=== PATIENT | female | born 1960 | race Caucasian/White ===

== ENCOUNTER 2016-07-11 17:22 | Emergency (ER) | payer BC, MEDICAID ==
[~2016-07-11] VITALS: Ht 160 cm; Wt 69.4 kg
[~2016-07-11 17:22] MED LIST: ALBU8HFA4 INH; NATURE THROID PO
--- NOTE | 2016-07-11 17:50 | NUR ---
CHAPERONED EXAMINING THE PT.
[2016-07-11 17:58] LABS: *BILIRUBIN,URIN NEGATIVE (NEGATIVE); *BLOOD, URINE 1+ (NEGATIVE); *CLARITY,URINE CLEAR (CLEAR); *COLOR,URINE YELLOW (YELLOW); *KETONES,URINE NEGATIVE (NEGATIVE); *PROTEIN,URINE NEGATIVE (NEGATIVE); *UROBILINOGEN,URINE 0.2 E.U./dl (NORMAL); NITRITE, URINE NEGATIVE (NEGATIVE); UGLUCOSE NEGATIVE (NEGATIVE)
[2016-07-11 18:06] LABS: LEUKOCYTE ESTERASE ,URINE TRACE (NEGATIVE)
[2016-07-11 18:07] LABS: SQUAMOUS EPITHELIAL CELL,UR FEW /HPF (NONE SEEN)
[2016-07-11 18:08] LABS: MUCUS,URINE MANY /LPF (0-FEW)
== END 2016-07-11 18:00 | disposition home or self-care (01) ==
LOC: ER 17:22
DX: N89.8 Other specified noninflammatory disorders of vagina (principal); I10 Essential (primary) hypertension; J45.909 Unspecified asthma, uncomplicated
CPT/HCPCS: 81001; 99283; A4663

== ENCOUNTER 2017-04-09 11:12 | Emergency (ER) | payer BC, MEDICAID, OTHER ==
[~2017-04-09] VITALS: Ht 160 cm; Wt 67.1 kg
[2017-04-09] MEDS ORDERED: SULF500T8 PO (11:26)
[2017-04-09] MEDS ORDERED: VALS40TA4 PO (11:26)
[2017-04-09] MEDS ORDERED: predniSONE 10 MG TABLET PO ONE (11:30)
[2017-04-09] MEDS ORDERED: ALBUTEROL SULFATE 2.5 MG/3 ML NEBU NEB ONE (11:30)
[2017-04-09] MEDS ORDERED: IPRATROPIUM BROMIDE 0.5 MG/2.5 ML NEBU NEB ONE (11:30)
[2017-04-09] MEDS ORDERED: predniSONE 20 MG TABLET ONE (11:51)
[2017-04-09] MEDS ORDERED: ALBUTEROL SULFATE 2.5 MG/3 ML NEBU ONE (11:55)
[2017-04-09] MEDS ORDERED: IPRATROPIUM BROMIDE 0.5 MG/2.5 ML NEBU ONE (11:55)
--- NOTE | 2017-04-09 12:26 | NUR ---
Patient discharged to home in stable conditon. Written and verbal after care instructions given. Patient verbalizes understanding of instructions.pt walks in steady gait, says feels better, lungs clear.
[2017-04-09 12:27] VITALS: BP 141/88
== END 2017-04-09 12:27 | disposition home or self-care (01) ==
LOC: ER 11:12
DX: J45.901 Unspecified asthma with (acute) exacerbation (principal); I10 Essential (primary) hypertension; M19.90 Unspecified osteoarthritis, unspecified site; R09.82 Postnasal drip
CPT/HCPCS: 71010; 93005; A4663; J3590; J7512

== ENCOUNTER 2017-04-14 11:05 | Emergency (ER) | payer OTHER ==
[~2017-04-14] VITALS: Ht 160 cm; Wt 68.0 kg
[~2017-04-14 11:05] MED LIST changes: +SULF500T8 PO; +VALS40TA4 PO
--- NOTE | 2017-04-14 11:41 | NUR ---
INITIALLY PT REFUSED EKG, AWARE. PT WAS THEN EVALUATED PER DR PANTOJA, PT THEN D/C'D HOME, ACI/RX X3 GIVEN. PT AMBULATED W/O DIFF/TOOK ALL BELONGINGS.
[2017-04-14 11:42] VITALS: BP 158/75
== END 2017-04-14 11:44 | disposition home or self-care (01) ==
LOC: ER 11:05
DX: J45.901 Unspecified asthma with (acute) exacerbation (principal); I10 Essential (primary) hypertension; M19.90 Unspecified osteoarthritis, unspecified site
CPT/HCPCS: 99283; A4663

== ENCOUNTER 2019-01-23 17:30 | Inpatient (IN) | payer BC, OTHER ==
[~2019-01-23] VITALS: Ht 157.5 cm; Wt 64.9 kg
[2019-01-23] MEDS ORDERED: IV NORMAL SALINE 1000 ML BAG IV ONE (18:15)
[2019-01-23] MEDS ORDERED: SWABABLE VALVE TRANSFER SET EA MC ONE (18:17)
[2019-01-23] MEDS ORDERED: IOHEXOL 350 100 ML INFUS..BTL ONE ×2 (18:17→18:21)
[2019-01-23] MEDS ORDERED: IV NORMAL SALINE 250 ML IV ONE (18:17)
[2019-01-23 18:40] LABS: BASOPHILS # (AUTO) 0.1 K/uL (0.0-8.0); BASOPHILS % (AUTO) 1.1 % (0.0-2.0); EOSINOPHILS # (AUTO) 0.3 K/uL (0.0-0.7); EOSINOPHILS % (AUTO) 3.5 % (0.0-7.0); HEMOGLOBIN 13.4 g/dL (10.9-14.3); LYMPHOCYTES # (AUTO) 2.5 K/uL (20.0-40.0); LYMPHOCYTES % (AUTO) 32.7 % (20.5-51.5); MEAN CORPUSCULAR HEMOGLOBIN 27.6 uug (24.7-32.8); MEAN CORPUSCULAR HGB CONC 33 g/dL (32.3-35.6); MEAN CORPUSCULAR VOLUME 82.4 fL (75.5-95.3); MONOCYTES # (AUTO) 0.6 K/uL (2.0-10.0); MONOCYTES % (AUTO) 7.2 % (0.0-11.0); NEUTROPHILS # (AUTO) 4.3 K/uL (1.8-8.9); NEUTROPHILS % (AUTO) 55.5 % (38.5-71.5); PLATELET COUNT (AUTO) 150 K/uL (179-408); RED BLOOD CELL COUNT(AUTO) 4.86 MIL/uL (3.63-4.92); WHITE BLOOD COUNT (AUTO) 7.7 K/uL (3.8-11.8)
[2019-01-23 18:42] LABS: CREATININE 0.8 mg/dL (0.6-1.3); POTASSIUM 3.3 mmol/L (3.5-5.1)
[2019-01-23 18:48] LABS: BILIRUBIN,DIRECT 0.1 mg/dL (0.0-0.2); BILIRUBIN,TOTAL 0.3 mg/dL (0.2-1.0); TOTAL PROTEIN, SERUM 7.1 g/dL (6.4-8.2)
[2019-01-23] MEDS ORDERED: ASPIRIN 81 MG TAB.CHEW PO ONE (19:30)
[2019-01-23] MEDS ORDERED: ASPIRIN 81 MG TAB.CHEW ONE (19:39)
[2019-01-23] MEDS ORDERED: LORAZEPAM 2 MG/1 ML VIAL IV ONE (19:45)
[2019-01-23] MEDS ORDERED: LORAZEPAM 2 MG/1 ML VIAL ONE (20:03)
[2019-01-23] MEDS ORDERED: ACETAMINOPHEN 325 MG TABLET PO PRN (21:30)
[2019-01-23 22:00] LABS: THYROID STIMULATING HORMONE 1.399 mIU/mL (0.358-3.740)
[2019-01-23] MEDS ORDERED: hydrALAZINE HCL 20 MG/1 ML VIAL IV PRN (22:15)
[2019-01-23] MEDS ORDERED: TEMAZEPAM 15 MG CAPSULE PO PRN (22:15)
[2019-01-23 22:27] VITALS: BP 146/78
[2019-01-23] MEDS ORDERED: POTASSIUM CHLORIDE 20 MEQ TAB.PRT.SR PO ONE (22:45)
[2019-01-23] MEDS: ENOXAPARIN SODIUM 40 MG/0.4 ML DISP.SYRIN SQ SCH (23:28)
[2019-01-24 00:30] VITALS: BP 170/68
[2019-01-24] MEDS: BLOOD SUGAR DIAGNOSTIC 1 EACH STRIP VI SCH ×5 (00:41→23:54)
[2019-01-24 06:03] VITALS: BP 145/75
[2019-01-24 07:08] LABS: EOSINOPHILS # (AUTO) 0.2 K/uL (0.0-0.7); EOSINOPHILS % (AUTO) 3.9 % (0.0-7.0); HEMATOCRIT 37.7 % (31.2-41.9); HEMOGLOBIN 12.8 g/dL (10.9-14.3); LYMPHOCYTES % (AUTO) 39.4 % (20.5-51.5); MEAN CORPUSCULAR HEMOGLOBIN 28.3 uug (24.7-32.8); MEAN CORPUSCULAR HGB CONC 34 g/dL (32.3-35.6); MEAN CORPUSCULAR VOLUME 83.7 fL (75.5-95.3); MONOCYTES # (AUTO) 0.3 K/uL (2.0-10.0); MONOCYTES % (AUTO) 6.9 % (0.0-11.0); NEUTROPHILS # (AUTO) 2.4 K/uL (1.8-8.9); NEUTROPHILS % (AUTO) 48.8 % (38.5-71.5); RED BLOOD CELL COUNT(AUTO) 4.51 MIL/uL (3.63-4.92)
[2019-01-24 07:17] LABS: CREATININE 0.8 mg/dL (0.6-1.3); POTASSIUM 3.6 mmol/L (3.5-5.1)
[2019-01-24 07:19] LABS: PLATELET COUNT (AUTO) 220 K/uL (179-408)
[2019-01-24] MEDS ORDERED: BLOOD SUGAR DIAGNOSTIC 1 EACH STRIP VI SCH (07:30)
[2019-01-24] MEDS: VALSARTAN 40 MG TABLET PO SCH (09:13)
[2019-01-24] MEDS: ASPIRIN EC 81 MG TABLET.DR PO SCH (09:13)
[2019-01-24 11:53] VITALS: BP 142/72
[2019-01-24 16:02] VITALS: BP 128/71
[2019-01-24 20:26] VITALS: BP 171/80
[2019-01-24] MEDS ORDERED: LORAZEPAM 2 MG/1 ML VIAL IV PRN (20:30)
[2019-01-24] MEDS: ENOXAPARIN SODIUM 40 MG/0.4 ML DISP.SYRIN SQ SCH (20:54)
[2019-01-24] MEDS ORDERED: ATORVASTATIN 10 MG TABLET PO SCH (21:00)
[2019-01-25 04:00] VITALS: BP 143/70
[2019-01-25] MEDS: BLOOD SUGAR DIAGNOSTIC 1 EACH STRIP VI SCH ×2 (06:00→11:11)
[2019-01-25] MEDS: ASPIRIN EC 81 MG TABLET.DR PO SCH (08:28)
[2019-01-25] MEDS: VALSARTAN 40 MG TABLET PO SCH (08:28)
[2019-01-25 11:09] VITALS: BP 145/71
[2019-01-25] MEDS ORDERED: ATOR10TA PO (11:45)
[2019-01-25] MEDS ORDERED: ASPI-605 PO (11:45)
[2019-01-25] MEDS ORDERED: CLON0.1T PO (11:45)
[2019-01-25] MEDS ORDERED: LISI10TA5 PO (11:45)
[2019-01-25 15:29] VITALS: BP 159/69
== END 2019-01-25 17:40 | disposition home or self-care (01) | DRG 69 ==
LOC: ER 17:30 → TELE3 21:30
PROVIDERS: ADMIT Nurse Practitioner Acute Care; ATTEND Nurse Practitioner Acute Care
DX: G45.9 Transient cerebral ischemic attack, unspecified (principal); E87.6 Hypokalemia; E78.5 Hyperlipidemia, unspecified; D69.6 Thrombocytopenia, unspecified; I10 Essential (primary) hypertension; R40.2252 Coma scale, best verbal response, oriented, at arrival to emergency department; R40.2362 Coma scale, best motor response, obeys commands, at arrival to emergency department; R40.2142 Coma scale, eyes open, spontaneous, at arrival to emergency department; R29.700 NIHSS score 0; R47.1 Dysarthria and anarthria
CPT/HCPCS: 36415; 70030-TC; 70450; 71045; 84443; 85025; 85651; 85730; 86850; 86900; 86901; 93005; 93307; 93880; A4663; G0378; J0360; J1650; J2060; J7030; J7050; Q9967

== ENCOUNTER 2019-06-10 16:31 | Inpatient (IN) | payer BC ==
[~2019-06-10] VITALS: Ht 160 cm; Wt 66.2 kg
[~2019-06-10 16:31] MED LIST changes: +ASPI-605 PO; +ATOR10TA PO; +CLON0.1T PO; +LISI10TA5 PO; -NATURE THROID PO; -SULF500T8 PO; -VALS40TA4 PO
[2019-06-10] MEDS ORDERED: DOXY100C2 PO (16:37)
[2019-06-10] MEDS: IPRATROPIUM BROMIDE 0.5 MG/2.5 ML NEBU NEB ONE ×2 (16:55→17:52)
[2019-06-10] MEDS: ALBUTEROL SULFATE 2.5 MG/3 ML NEBU NEB ONE ×2 (16:55→17:52)
[2019-06-10] MEDS ORDERED: IPRATROPIUM BROMIDE 0.5 MG/2.5 ML NEBU ONE (16:57)
[2019-06-10] MEDS ORDERED: ALBUTEROL SULFATE 2.5 MG/3 ML NEBU ONE ×3 (16:57→22:45)
[2019-06-10] MEDS ORDERED: MAGNESIUM SULFATE/D5W 100 ML IV SCH (17:00)
[2019-06-10] MEDS ORDERED: ONDANSETRON 4 MG/2 ML VIAL ONE (17:12)
[2019-06-10] MEDS ORDERED: MAGNESIUM SULFATE/D5W 100 ML ONE (17:12)
[2019-06-10] MEDS ORDERED: ONDANSETRON 4 MG/2 ML VIAL IV ONE (17:15)
--- NOTE | 2019-06-10 17:18 | NUR ---
PT IS IN ROOM #2B. DR HERNANDEZ EVALUATED THE PT.
[2019-06-10] MEDS ORDERED: IV NORMAL SALINE 1000 ML BAG IV ONE (19:00)
--- NOTE | 2019-06-10 19:09 | NUR ---
REPORT WAS GIVEN TO EQUITY SALES ASSISTANTRUBBER BALL FINISHER.
[2019-06-10 19:31] LABS: BASOPHILS % (AUTO) 0.5 % (0.0-2.0); EOSINOPHILS % (AUTO) 0.1 % (0.0-7.0); HEMATOCRIT 40.9 % (31.2-41.9); HEMOGLOBIN 13.8 g/dL (10.9-14.3); LYMPHOCYTES # (AUTO) 0.8 K/uL (20.0-40.0); LYMPHOCYTES % (AUTO) 8.8 % (20.5-51.5); MEAN CORPUSCULAR HEMOGLOBIN 28.5 uug (24.7-32.8); MEAN CORPUSCULAR HGB CONC 34 g/dL (32.3-35.6); MEAN CORPUSCULAR VOLUME 84.4 fL (75.5-95.3); MONOCYTES # (AUTO) 0.1 K/uL (2.0-10.0); MONOCYTES % (AUTO) 1.4 % (0.0-11.0); NEUTROPHILS # (AUTO) 7.7 K/uL (1.8-8.9); NEUTROPHILS % (AUTO) 89.2 % (38.5-71.5); PLATELET COUNT (AUTO) 257 K/uL (179-408); RED BLOOD CELL COUNT(AUTO) 4.84 MIL/uL (3.63-4.92); WHITE BLOOD COUNT (AUTO) 8.6 K/uL (3.8-11.8)
[2019-06-10 19:36] LABS: POTASSIUM 3.8 mmol/L (3.5-5.1)
[2019-06-10 19:42] LABS: BILIRUBIN,DIRECT 0.1 mg/dL (0.0-0.2); BILIRUBIN,TOTAL 0.5 mg/dL (0.2-1.0)
--- NOTE | 2019-06-10 20:10 | NUR ---
Respiratory at bedside.
[2019-06-10] MEDS ORDERED: ALBUTEROL SULFATE 2.5 MG/3 ML NEBU NEB ONE ×2 (20:15→22:45)
--- NOTE | 2019-06-10 20:40 | NUR ---
Spoke with Jos[facility], patient to be transferred to [facility], Accepting MD is Dr. Miarnda.
--- NOTE | 2019-06-10 21:20 | NUR ---
Called [facility] to page Dominick Montgomery DNP.
--- NOTE | 2019-06-10 21:33 | NUR ---
Waiting irrigation pump installer back from Lily.
--- NOTE | 2019-06-10 21:45 | NUR ---
Received call back from Lily Cannon Pt to be transferred to [facility], Accepting MD is Dr. Malone, waiting on room # and phone to report to. Faxed clinicals and face sheet to
--- NOTE | 2019-06-10 23:39 | NUR ---
Received call back from Zoya, stated that according to Dr. Malone that pt can be admitted to [facility] over night.
--- NOTE | 2019-06-10 23:40 | NUR ---
Called [facility] to page Dominick Montgomery DNP.
--- NOTE | 2019-06-11 00:02 | NUR ---
Called [facility] to page Dr. Merritt.
--- NOTE | 2019-06-11 00:06 | NUR ---
Dr. Trotter on panel call with Dr. Merritt. Patient accepted for admission to [facility], diagnosis: status asthmaticus.
--- NOTE | 2019-06-11 00:07 | NUR ---
Report given to Nicole BARRETO Tele.
[2019-06-11 00:10] VITALS: BP 153/71
[2019-06-11] MEDS ORDERED: HYDROCODONE/APAP 5-325MG TABLET PO PRN (00:45)
[2019-06-11] MEDS ORDERED: Z GUARD REMEDY PASTE 57 GM TUBE TOP PRN (00:45)
[2019-06-11] MEDS ORDERED: ZOLPIDEM 5 MG TABLET PO PRN (00:45)
--- NOTE | 2019-06-11 00:45 | NUR ---
New Admit Patient received into care, awake/alert and oriented x4. Patient has complaint of 5/10 pain in chest area r/t coughing and breathing treatments she has received. Complete PMH and H&P completed. Patients VS are WNL and she is stable. Telemonitor applied and patient is NSR 70's. Safety and fall precaution measures are in place. Call light and personal items are within reach. Will continue to monitor and assess.
[2019-06-11] MEDS: methylPREDNISolone SOD SUCC 125 MG/2 ML VIAL IV SCH ×4 (02:02→21:04)
[2019-06-11] MEDS: ALBUTEROL SULFATE 2.5 MG/3 ML NEBU NEB SCH ×6 (02:51→23:07)
[2019-06-11] MEDS: IPRATROPIUM BROMIDE 0.5 MG/2.5 ML NEBU NEB SCH ×6 (02:51→23:07)
[2019-06-11 04:00] VITALS: BP 129/62
--- NOTE | 2019-06-11 06:00 | NUR ---
PATIENT SLEPT THROUGHOUT NIGHT AFTER ADMISSION TO UNIT WITH NO COMPLAINTS OF PAIN OR DISCOMFORT AND NO SIGNS/SYMPTOMS OF ACUTE DISTRESS OR DISCOMFORT NOTED/OBSERVED BY NURSE. ALL PRESCRIBED MEDICATIONS PROVIDED ORDERED AND TOLERATED WELL BY PATIENT WITH NO ADVERSE SIDE EFFECTS VERBALIZED BY PATIENT OR NOTED/OBSERVED BY NURSE. ALL PATIENT NEEDS MET PROMPTLY AND PATIENT IS WARM, DRY, AND COMFORTABLE. CALL LIGHT AND PERSONAL ITEMS REMAIN WITHIN REACH. SAFETY AND FALL PRECAUTION MEASURES REMAIN IN PLACE.
[2019-06-11] MEDS: PANTOPRAZOLE SODIUM 40 MG TABLET.DR PO SCH (06:06)
--- NOTE | 2019-06-11 07:15 | NUR ---
Received patient on Bed, awake and verbally responsive. No signs of distress noted. No SOB. No complain of Pain or discomfort. Denies chest pain. Kept comfortable. Will continue to monitor.
[2019-06-11 11:32] VITALS: BP 127/64
[2019-06-11] MEDS: levoFLOXacin 750MG/D5W 750 MG in PREMIXED 1 EACH IV SCH (15:34)
[2019-06-11 15:51] VITALS: BP 123/62
--- NOTE | 2019-06-11 18:17 | NUR ---
Patient in bed, awake and verbally responsive. No signs of distress noted. No SOB. On Oxygen at 3LPM, saturating 96%. No complain of Pain or discomfort. All needs attended and met. Kept comfortable. Kept the call light within easy reach. Will endorse to oncoming Nurse.
--- NOTE | 2019-06-11 19:30 | NUR ---
PATIENT REFUSED DVT PUMPS.
[2019-06-11 20:49] VITALS: BP 117/54
[2019-06-12] MEDS: ACETAMINOPHEN 325 MG TABLET PO PRN ×3 (01:35→19:58)
[2019-06-12] MEDS: ALBUTEROL SULFATE 2.5 MG/3 ML NEBU NEB SCH ×4 (04:13→11:00)
[2019-06-12] MEDS: IPRATROPIUM BROMIDE 0.5 MG/2.5 ML NEBU NEB SCH ×6 (04:13→22:10)
--- NOTE | 2019-06-12 04:45 | NUR ---
PATIENT SPO2 REMAINS ABOVE 92% ON 2LPM. HHN TREATMENTS ADMINISTERED. PATIENT STATES SHE FEELS HEART PALPITATIONS AFTER TREATMENTS THAT ARE PREVENTING HER FROM RESTING. HEART RATE REMAINED WITHIN NORMAL LIMITS PRE AND POST TREATMENTS. I RECOMMEND CHANGING MEDS TO XOPENEX FOR FUTURE TX. MARY LOU DAHL. WILL CONTINUE TO MONITOR.
[2019-06-12 05:27] VITALS: BP 132/81
--- NOTE | 2019-06-12 05:30 | NUR ---
PATIENT SLEPT INTERMITTENTLY. V/S STABLE AND NO SIGNS OF ACUTE DISTRESS. C/O OF PAIN THROUGHOUT SHIFT. NORCO5 X1 AND TYLENOL X1 ADMINISTERED TO ADDRESS. TOLERATED WELL. URINE SAMPLE COLLECTED AND SENT TO LAB. SAFETY AND COMFORT MEASURES PROVIDED AT ALL TIMES. BED IN LOWEST POSITION, SIDE RAILS UP X2, AND BED ALARM ON. WILL CONTINUE TO MONITOR AND ENDORSE CARE TO MORNING NURSE.
[2019-06-12 05:34] LABS: *BILIRUBIN,URIN NEGATIVE (NEGATIVE); *CLARITY,URINE CLEAR (CLEAR); *COLOR,URINE YELLOW (YELLOW); *KETONES,URINE NEGATIVE (NEGATIVE); *UROBILINOGEN,URINE 0.2 E.U./dl (NORMAL); LEUKOCYTE ESTERASE ,URINE NEGATIVE (NEGATIVE); NITRITE, URINE NEGATIVE (NEGATIVE); UGLUCOSE NEGATIVE (NEGATIVE)
[2019-06-12] MEDS: methylPREDNISolone SOD SUCC 125 MG/2 ML VIAL IV SCH ×3 (06:00→21:00)
--- NOTE | 2019-06-12 06:04 | NUR ---
patient refused steroid medication this morning despite education. will continue to monitor and endorse care.
--- NOTE | 2019-06-12 06:26 | NUR ---
PATIENT REFUSED LAB THIS MORNING TWICE. WILL ENDORSE TO MORNING NURSE TO F/U WITH PATIENT LATER IN THE MORNING.
[2019-06-12] MEDS: PANTOPRAZOLE SODIUM 40 MG TABLET.DR PO SCH (06:27)
[2019-06-12 06:36] LABS: *BLOOD, URINE NEGATIVE (NEGATIVE)
[2019-06-12] MEDS: ONDANSETRON 4 MG/2 ML VIAL IV PRN ×2 (08:27→19:58)
[2019-06-12 11:09] VITALS: BP 132/66
[2019-06-12] MEDS: LEVALBUTEROL HCL NEB 0.63 MG/3 ML NEBU NEB SCH ×2 (13:30→19:20)
[2019-06-12] MEDS: levoFLOXacin 750MG/D5W 750 MG in PREMIXED 1 EACH IV SCH (14:31)
[2019-06-12 15:12] LABS: BASOPHILS % (AUTO) 0.1 % (0.0-2.0); HEMATOCRIT 37.9 % (31.2-41.9); HEMOGLOBIN 12.6 g/dL (10.9-14.3); LYMPHOCYTES # (AUTO) 0.7 K/uL (20.0-40.0); LYMPHOCYTES % (AUTO) 5.9 % (20.5-51.5); MEAN CORPUSCULAR HEMOGLOBIN 27.9 uug (24.7-32.8); MEAN CORPUSCULAR HGB CONC 33 g/dL (32.3-35.6); MEAN CORPUSCULAR VOLUME 84.2 fL (75.5-95.3); MONOCYTES # (AUTO) 0.4 K/uL (2.0-10.0); MONOCYTES % (AUTO) 3.3 % (0.0-11.0); NEUTROPHILS # (AUTO) 11.4 K/uL (1.8-8.9); NEUTROPHILS % (AUTO) 90.7 % (38.5-71.5); PLATELET COUNT (AUTO) 270 K/uL (179-408); WHITE BLOOD COUNT (AUTO) 12.5 K/uL (3.8-11.8)
[2019-06-12 15:21] VITALS: BP 139/67
[2019-06-12 15:27] LABS: MAGNESIUM 2.3 mg/dL (1.8-2.4); PHOSPHOROUS 2.8 mg/dL (2.5-4.9)
[2019-06-12 15:31] LABS: THYROID STIMULATING HORMONE 0.307 mIU/mL (0.358-3.740)
[2019-06-12 19:46] VITALS: BP 137/74
[2019-06-12] MEDS: ATORVASTATIN 10 MG TABLET PO SCH (20:00)
--- NOTE | 2019-06-12 22:14 | NUR ---
patient c/o of not have a Bowl movement. offered patient Milk of Mg. patient refused despite education. will let me know if she changes her mind.
--- NOTE | 2019-06-12 22:15 | NUR ---
patient had c/o of nausea and headache. administered Tylenol and Zofran. resting calm and comfortably now. eating 100% of her dinner. v/s stable and WNL. will continue to monitor for s/s of headache and nausea.
[2019-06-13] MEDS: IPRATROPIUM BROMIDE 0.5 MG/2.5 ML NEBU NEB SCH ×7 (01:06→22:07)
[2019-06-13] MEDS: LEVALBUTEROL HCL NEB 0.63 MG/3 ML NEBU NEB SCH ×7 (01:06→22:07)
[2019-06-13] MEDS: ACETAMINOPHEN 325 MG TABLET PO PRN (02:32)
[2019-06-13] MEDS: ONDANSETRON 4 MG/2 ML VIAL IV PRN (04:27)
[2019-06-13] MEDS: MAGNESIUM HYDROXIDE 30 ML LIQUID UDC PO PRN (04:42)
[2019-06-13] MEDS: methylPREDNISolone SOD SUCC 125 MG/2 ML VIAL IV SCH ×3 (05:02→22:00)
[2019-06-13 05:20] VITALS: BP 140/65
[2019-06-13] MEDS: PANTOPRAZOLE SODIUM 40 MG TABLET.DR PO SCH (06:46)
--- NOTE | 2019-06-13 06:46 | NUR ---
patient refused protonix this morning despite education. will return to pyxis.
--- NOTE | 2019-06-13 07:30 | NUR ---
Sleeping, appears comfortable. RA, not in distress
--- NOTE | 2019-06-13 09:00 | NUR ---
Patient not feeling, with headache and nausea. Refused Zofran at this time. With shortness of breath and wheezing. Due HHN given with relief.
[2019-06-13] MEDS: ASPIRIN EC 81 MG TABLET.DR PO SCH (09:24)
[2019-06-13] MEDS: LISINOPRIL 10 MG TABLET PO SCH (09:25)
[2019-06-13] MEDS ORDERED: ONDANSETRON 4 MG/2 ML VIAL IV PRN (09:30)
[2019-06-13 11:59] VITALS: BP 153/69
[2019-06-13] MEDS ORDERED: ALBUTEROL SULFATE 1.25 MG/3 ML NEBU NEB SCH (13:30)
--- NOTE | 2019-06-13 14:00 | NUR ---
Dose of Solumedrol and Levaquin given in slow rate per patient's request.
[2019-06-13] MEDS: levoFLOXacin 750MG/D5W 750 MG in PREMIXED 1 EACH IV SCH (14:07)
[2019-06-13 15:31] VITALS: BP 130/65
--- NOTE | 2019-06-13 18:22 | NUR ---
Room air, not in distress
[2019-06-13 20:00] VITALS: BP 150/74
--- NOTE | 2019-06-13 20:00 | NUR ---
RECEIVED PATIENT AWAKE IN BED. A/O X4. DENIES PAIN OR DISCOMFORT. ON O2 1L NC SATING WELL. DENIES SOB. NO RESP. DISTRESS NOTED. VS WNL. HEPLOCK NOTED TO RIGHT HAND #20 GAUGE, WITH TKO. CALL LIGHT IN REACH. ALL NEEDS ATTENDED. WILL CONTINUE TO MONITOR AND ASSESS.
--- NOTE | 2019-06-13 20:26 | NUR ---
Pt is on 0.5LNC at this time and requested resp neb tx to be adm'd at approx 2200. No resp. distress noted at this time.
[2019-06-13] MEDS: ATORVASTATIN 10 MG TABLET PO SCH ×2 (20:45→21:39)
[2019-06-14] MEDS: IPRATROPIUM BROMIDE 0.5 MG/2.5 ML NEBU NEB SCH ×6 (03:30→19:48)
[2019-06-14 04:00] VITALS: BP 130/63
[2019-06-14] MEDS: LEVALBUTEROL HCL NEB 0.63 MG/3 ML NEBU NEB SCH ×3 (04:00→19:48)
[2019-06-14] MEDS: methylPREDNISolone SOD SUCC 125 MG/2 ML VIAL IV SCH ×3 (06:00→21:13)
--- NOTE | 2019-06-14 06:43 | NUR ---
PATIENT ASLEEP BUT EASILY AROUSABLE, NO SOB NO CHEST PAIN, CONT ON HHN TX FOR ASTHMA, PATIENT HAS NO COMPLAIN OF PAIN AT THIS TIME. PATIENT REFUSED 0400 HHN TX REFUSED TO BE AWAKEN FOR THE TX. RT WAS NOTIFIED.
[2019-06-14] MEDS: PANTOPRAZOLE SODIUM 40 MG TABLET.DR PO SCH (07:07)
[2019-06-14] MEDS ORDERED: ALBUTEROL SULFATE 1.25 MG/3 ML NEBU NEB ONE (07:35)
--- NOTE | 2019-06-14 08:00 | NUR ---
RECEIVED PT RESTING COMFORTABLY IN BED. NO SOB OR ACUTE DISTRESS NOTED. BED LOCKED AND IN LOW POSITION. WILL CONTINUE TO MONITOR FOR SAFETY AND COMFORT.
[2019-06-14] MEDS: ASPIRIN EC 81 MG TABLET.DR PO SCH (08:53)
[2019-06-14] MEDS: LISINOPRIL 10 MG TABLET PO SCH (08:53)
[2019-06-14 11:11] VITALS: BP 136/72
[2019-06-14] MEDS ORDERED: BUDESONIDE 0.5 MG/2 ML NEBU NEB SCH (12:30)
[2019-06-14] MEDS ORDERED: LEVALBUTEROL HCL NEB 0.63 MG/3 ML NEBU NEB PRN (12:30)
[2019-06-14] MEDS: GUAIFENESIN LA 600 MG TABLET.SA PO SCH ×2 (12:38→20:19)
[2019-06-14] MEDS ORDERED: LEVALBUTEROL HCL NEB 0.63 MG/3 ML NEBU NEB SCH ×2 (13:30)
[2019-06-14] MEDS ORDERED: ALBUTEROL SULFATE 1.25 MG/3 ML NEBU NEB SCH (13:30)
[2019-06-14 14:52] LABS: HEMATOCRIT 40.9 % (31.2-41.9); HEMOGLOBIN 13.4 g/dL (10.9-14.3); LYMPHOCYTES # (AUTO) 0.9 K/uL (20.0-40.0); LYMPHOCYTES % (AUTO) 8.9 % (20.5-51.5); MEAN CORPUSCULAR HGB CONC 33 g/dL (32.3-35.6); MONOCYTES # (AUTO) 0.6 K/uL (2.0-10.0); MONOCYTES % (AUTO) 5.9 % (0.0-11.0); NEUTROPHILS # (AUTO) 8.7 K/uL (1.8-8.9); NEUTROPHILS % (AUTO) 85.2 % (38.5-71.5); PLATELET COUNT (AUTO) 251 K/uL (179-408); RED BLOOD CELL COUNT(AUTO) 4.81 MIL/uL (3.63-4.92); WHITE BLOOD COUNT (AUTO) 10.2 K/uL (3.8-11.8)
[2019-06-14] MEDS: levoFLOXacin 750MG/D5W 750 MG in PREMIXED 1 EACH IV SCH (15:08)
[2019-06-14 15:12] LABS: CREATININE 0.9 mg/dL (0.6-1.3)
[2019-06-14 15:19] VITALS: BP 132/69
--- NOTE | 2019-06-14 18:00 | NUR ---
ABX GIVEN @ 50ML/HR. PER PT REQUEST. PHARMACY INFORMED. DR ANDINO AWARE. NO ACUTE DISTRESS OR SOB NOTED. PT ON RA COMFORTABLE PLEASANT AND COOPERATIVE. WILL GIVE REPORT ACCORDINGLY.
[2019-06-14 20:00] VITALS: BP 113/62
[2019-06-14] MEDS: ATORVASTATIN 10 MG TABLET PO SCH (20:19)
[2019-06-14] MEDS: ACETAMINOPHEN 325 MG TABLET PO PRN (21:59)
[2019-06-15] MEDS: IPRATROPIUM BROMIDE 0.5 MG/2.5 ML NEBU NEB SCH ×4 (00:45→20:20)
[2019-06-15] MEDS: LEVALBUTEROL HCL NEB 0.63 MG/3 ML NEBU NEB SCH ×4 (00:45→20:20)
[2019-06-15 04:00] VITALS: BP 123/58
[2019-06-15] MEDS: CALCIUM CARBONATE 500 MG TAB.CHEW PO PRN (05:28)
[2019-06-15] MEDS: methylPREDNISolone SOD SUCC 125 MG/2 ML VIAL IV SCH ×2 (05:28→20:24)
[2019-06-15] MEDS: ACETAMINOPHEN 325 MG TABLET PO PRN ×2 (05:42→20:55)
--- NOTE | 2019-06-15 06:18 | NUR ---
Patient slept intermittently. No SOB noted. IV site on R hand intact and patent. All needs attended. Will endorse accordingly
[2019-06-15] MEDS: PANTOPRAZOLE SODIUM 40 MG TABLET.DR PO SCH (06:39)
--- NOTE | 2019-06-15 07:29 | NUR ---
RECEIVED PATIENT ASLEEP IN BED. NO S/S OF ACUTE DISTRESS NOTED.NO C/O PAIN AT THIS TIME. SAFETY AND COMFORT PROVIDED . CALL LIGHT WITHIN REACH. WILL CONTINUE TO MONITOR .
[2019-06-15] MEDS: GUAIFENESIN LA 600 MG TABLET.SA PO SCH ×2 (10:07→20:25)
[2019-06-15] MEDS: LISINOPRIL 10 MG TABLET PO SCH (10:07)
[2019-06-15] MEDS: ASPIRIN EC 81 MG TABLET.DR PO SCH (10:08)
[2019-06-15] MEDS: MONTELUKAST SODIUM 10 MG TABLET PO SCH ×2 (10:09→18:23)
[2019-06-15 11:40] VITALS: BP 136/70
[2019-06-15] MEDS: levoFLOXacin 750MG/D5W 750 MG in PREMIXED 1 EACH IV SCH (15:09)
[2019-06-15 16:00] VITALS: BP 115/63
[2019-06-15] MEDS: IPRATROPIUM BROMIDE 0.5 MG/2.5 ML NEBU NEB PRN (17:41)
--- NOTE | 2019-06-15 18:42 | NUR ---
PATIENT ALERT AND AWAKE IN BED WITH HOB ELEVATED. NO S/S OF ACUTE DISTRESS NOTED. NO C/O PAIN AT THIS TIME. SAFETY AND COMFORT PROVIDED. CALL LIGHT WITHIN REACH. WILL CONTINUE TO MONITOR .
[2019-06-15] MEDS: ATORVASTATIN 10 MG TABLET PO SCH (20:25)
[2019-06-15] MEDS ORDERED: LEVALBUTEROL HCL 1.25 MG/0.5 ML NEB NEB SCH (21:00)
[2019-06-15] MEDS ORDERED: TEMAZEPAM 7.5 MG CAPSULE PO PRN (21:00)
[2019-06-15 21:11] VITALS: BP 143/61
[2019-06-15] MEDS: ALBUTEROL SULFATE 2.5 MG/ 0.5 ML NEBU NEB SCH (21:30)
[2019-06-16] MEDS: IPRATROPIUM BROMIDE 0.5 MG/2.5 ML NEBU NEB SCH ×5 (00:17→21:28)
[2019-06-16] MEDS: ALBUTEROL SULFATE 2.5 MG/ 0.5 ML NEBU NEB SCH ×7 (00:17→21:28)
[2019-06-16] MEDS: IPRATROPIUM BROMIDE 0.5 MG/2.5 ML NEBU NEB PRN (03:19)
[2019-06-16] MEDS: PANTOPRAZOLE SODIUM 40 MG TABLET.DR PO SCH (06:35)
--- NOTE | 2019-06-16 06:46 | NUR ---
Patient slept intermittently. No complaints of pain at this time. IV site on R hand intact and patent w/ saline flush. All needs attended. Will endorse accordingly
[2019-06-16 06:57] VITALS: BP 133/63
--- NOTE | 2019-06-16 08:00 | NUR ---
Received pt. resting in bed alert oriented x4. pt. states she has some pain from coughing and wants tylenol. Pt. denies SOB/ difficulty breathing. IV in R hand 20 gauge intact patent running TKO per request of pt. Safety measures in place. call light within reach. will continue to monitor pt.
[2019-06-16] MEDS: GUAIFENESIN LA 600 MG TABLET.SA PO SCH ×2 (08:56→20:23)
[2019-06-16] MEDS: ACETAMINOPHEN 325 MG TABLET PO PRN ×2 (08:56→20:24)
[2019-06-16] MEDS: LISINOPRIL 10 MG TABLET PO SCH (08:56)
[2019-06-16] MEDS: ASPIRIN EC 81 MG TABLET.DR PO SCH (08:56)
[2019-06-16] MEDS: methylPREDNISolone SOD SUCC 125 MG/2 ML VIAL IV SCH (08:57)
[2019-06-16] MEDS ORDERED: IV NS 1000 ML 1,000 ML IV PRN (10:30)
[2019-06-16 11:39] VITALS: BP 134/76
[2019-06-16] MEDS: levoFLOXacin 750MG/D5W 750 MG in PREMIXED 1 EACH IV SCH (13:58)
[2019-06-16] MEDS: methylPREDNISolone SOD SUCC 40 MG/ML VIAL IV SCH ×2 (14:54→21:13)
[2019-06-16 16:00] VITALS: BP 114/61
[2019-06-16] MEDS: MONTELUKAST SODIUM 10 MG TABLET PO SCH (17:16)
--- NOTE | 2019-06-16 19:20 | NUR ---
Received patient lying in bed. AAOx4. In no acute distress. Denies any pain or SOB on RA at this time. Patient stated she uses O2 at 2LPM via NC PRN. IV site on right hand intact and patent. IVF infusing. Needs assessed and attended to. Patient daughter at bedside. Safety measure initiated and call gunn within reached.
--- NOTE | 2019-06-16 19:36 | NUR ---
Day shift nurse Vikki informed SELENE Grijalva that patient is requesting to only run NS at 50cc/ml as she has very sensitive veins. SELENE Grijalva with order to decrease NS to 50cc/hr per patient request. Order noted and carried out.
[2019-06-16 20:00] VITALS: BP 115/74
[2019-06-16] MEDS: ATORVASTATIN 10 MG TABLET PO SCH (20:23)
[2019-06-17] MEDS: ALBUTEROL SULFATE 2.5 MG/ 0.5 ML NEBU NEB SCH ×7 (01:43→23:30)
[2019-06-17] MEDS: IPRATROPIUM BROMIDE 0.5 MG/2.5 ML NEBU NEB SCH ×7 (01:43→23:30)
[2019-06-17 04:00] VITALS: BP 134/70
[2019-06-17] MEDS: methylPREDNISolone SOD SUCC 40 MG/ML VIAL IV SCH (05:51)
[2019-06-17] MEDS: ACETAMINOPHEN 325 MG TABLET PO PRN ×2 (05:51→21:40)
[2019-06-17] MEDS: PANTOPRAZOLE SODIUM 40 MG TABLET.DR PO SCH (06:00)
--- NOTE | 2019-06-17 06:05 | NUR ---
AAOx4. In no acute distress. On O2 at 2LPM via NC. O2 sat at 98%. Breathing treatment provided by RT per order. IV site on right hand intact and patent. IVF infusing. Needs attended to and met. Safety measure maintained and call gunn within reached.
[2019-06-17 06:55] LABS: BASOPHILS % (AUTO) 0.1 % (0.0-2.0); LYMPHOCYTES # (AUTO) 0.7 K/uL (20.0-40.0); LYMPHOCYTES % (AUTO) 5.8 % (20.5-51.5); MEAN CORPUSCULAR HEMOGLOBIN 28.2 uug (24.7-32.8); MEAN CORPUSCULAR HGB CONC 33 g/dL (32.3-35.6); MEAN CORPUSCULAR VOLUME 84.7 fL (75.5-95.3); MONOCYTES # (AUTO) 0.4 K/uL (2.0-10.0); MONOCYTES % (AUTO) 3.6 % (0.0-11.0); NEUTROPHILS # (AUTO) 10.8 K/uL (1.8-8.9); NEUTROPHILS % (AUTO) 90.5 % (38.5-71.5); PLATELET COUNT (AUTO) 232 K/uL (179-408); RED BLOOD CELL COUNT(AUTO) 4.29 MIL/uL (3.63-4.92); WHITE BLOOD COUNT (AUTO) 11.9 K/uL (3.8-11.8)
[2019-06-17 06:57] LABS: CREATININE 0.9 mg/dL (0.6-1.3); MAGNESIUM 2.4 mg/dL (1.8-2.4); PHOSPHOROUS 3.5 mg/dL (2.5-4.9); POTASSIUM 4.1 mmol/L (3.5-5.1)
[2019-06-17 07:15] LABS: HEMOGLOBIN 12.1 g/dL (10.9-14.3)
[2019-06-17 07:16] LABS: HEMATOCRIT 36.4 % (31.2-41.9)
--- NOTE | 2019-06-17 08:00 | NUR ---
Received pt. resting in bed alert oriented x4. pt. states she has some pain from coughing and wants tylenol. Pt. denies SOB/ difficulty breathing. IV in R hand 20 gauge intact patent running prescribed fluids Safety measures in place. call light within reach. will continue to monitor pt.
[2019-06-17] MEDS: ASPIRIN EC 81 MG TABLET.DR PO SCH (09:29)
[2019-06-17] MEDS: GUAIFENESIN LA 600 MG TABLET.SA PO SCH ×2 (09:29→20:59)
[2019-06-17] MEDS: LISINOPRIL 10 MG TABLET PO SCH (09:34)
[2019-06-17] MEDS ORDERED: LORAZEPAM 0.5 MG TABLET PO PRN (10:30)
[2019-06-17 12:00] VITALS: BP 122/64
[2019-06-17] MEDS ORDERED: methylPREDNISolone SOD SUCC 40 MG/ML VIAL IV SCH (14:00)
[2019-06-17] MEDS: MAGNESIUM HYDROXIDE 30 ML LIQUID UDC PO PRN (14:13)
[2019-06-17] MEDS: methylPREDNISolone SOD SUCC 125 MG/2 ML VIAL IV SCH ×2 (14:14→21:01)
[2019-06-17] MEDS: levoFLOXacin 750MG/D5W 750 MG in PREMIXED 1 EACH IV SCH (14:37)
[2019-06-17 15:59] VITALS: BP 125/67
[2019-06-17] MEDS: MONTELUKAST SODIUM 10 MG TABLET PO SCH (17:40)
--- NOTE | 2019-06-17 18:50 | NUR ---
Pt. has not had BM throughout shift. Provided pt. with prune juice and milk of magnesia and encouraged pt. to ambulate to get bowels moving. Will endorse to night shift manager nurse. All needs met. Safety measures in place. Call light within reach.
--- NOTE | 2019-06-17 19:20 | NUR ---
Received patient sitting upright in bed. AAOx4. In no acute distress. Denies SOB, On O2 at 2LPM via NC in place. Compalined of back pain but stated tolerable at this time. Offered pain medication but declined. IV site on right hand intact and patent. IVF infusing. Needs assessed and attended to. Safety measure initiated and call gunn within reached.
[2019-06-17 20:20] VITALS: BP 126/64
[2019-06-17] MEDS: ATORVASTATIN 10 MG TABLET PO SCH (20:59)
--- NOTE | 2019-06-17 22:14 | NUR ---
Informed SELENE Grijalva, that patient was asking for more Ativan. Patient was given 0.25mg PO of Ativan at 2133 and stated it is not effective. SELENE Grijalva with order to give additional Ativan 0.25mg x1 time dose only. Order verified and will carry out.
[2019-06-17] MEDS ORDERED: LORAZEPAM 0.5 MG TABLET PO ONE (22:30)
[2019-06-18] MEDS: ALBUTEROL SULFATE 2.5 MG/ 0.5 ML NEBU NEB SCH ×6 (03:30→23:30)
[2019-06-18] MEDS: IPRATROPIUM BROMIDE 0.5 MG/2.5 ML NEBU NEB SCH ×6 (03:30→23:30)
[2019-06-18 04:00] VITALS: BP 141/78
[2019-06-18] MEDS: IPRATROPIUM BROMIDE 0.5 MG/2.5 ML NEBU NEB PRN (05:50)
[2019-06-18] MEDS: ALBUTEROL SULFATE 2.5 MG/ 0.5 ML NEBU NEB PRN (05:50)
[2019-06-18] MEDS: methylPREDNISolone SOD SUCC 125 MG/2 ML VIAL IV SCH ×3 (05:58→22:10)
[2019-06-18] MEDS: ACETAMINOPHEN 325 MG TABLET PO PRN (06:04)
[2019-06-18] MEDS: PANTOPRAZOLE SODIUM 40 MG TABLET.DR PO SCH (06:04)
--- NOTE | 2019-06-18 06:09 | NUR ---
AAOx4. Reported she slept better last night. In no acute distress. On O2 at 2LPM via NC. . Breathing treatment provided by RT per order. Tylenol 650mg PO given for complain of pain and effective. IV site on right hand intact and patent. IVF infusing. Needs attended to and met. Safety measure maintained and call gunn within reached.
[2019-06-18] MEDS: IV NS 1000 ML 1,000 ML IV PRN (07:39)
--- NOTE | 2019-06-18 08:00 | NUR ---
Received pt. resting in bed alert oriented x4. Pt. denies SOB/ difficulty breathing. IV in R hand 20 gauge intact patent running prescribed fluids Safety measures in place. call light within reach. will continue to monitor pt.
[2019-06-18] MEDS: GUAIFENESIN LA 600 MG TABLET.SA PO SCH ×3 (08:43→22:10)
[2019-06-18] MEDS: ASPIRIN EC 81 MG TABLET.DR PO SCH (08:43)
[2019-06-18] MEDS: LISINOPRIL 10 MG TABLET PO SCH (08:43)
[2019-06-18 11:45] VITALS: BP 125/67
[2019-06-18] MEDS: LORAZEPAM 0.5 MG TABLET PO PRN ×2 (14:24→19:07)
[2019-06-18 16:00] VITALS: BP 123/63
[2019-06-18] MEDS: MONTELUKAST SODIUM 10 MG TABLET PO SCH (18:21)
[2019-06-18 20:24] VITALS: BP 111/57
--- NOTE | 2019-06-18 20:31 | NUR ---
patient lying in bed and reading book. v/s stable, no signs of acute distress. will continue to monitor.
[2019-06-18] MEDS: ATORVASTATIN 10 MG TABLET PO SCH (21:18)
--- NOTE | 2019-06-18 21:19 | NUR ---
patient dropped her mucinex on the floor while attempting to swallow. will pull from pyxis again to administer.
[2019-06-19] MEDS: IV NS 1000 ML 1,000 ML IV PRN ×2 (00:06→19:09)
[2019-06-19] MEDS: LORAZEPAM 0.5 MG TABLET PO PRN ×2 (03:38→21:57)
[2019-06-19] MEDS: IPRATROPIUM BROMIDE 0.5 MG/2.5 ML NEBU NEB SCH ×6 (04:34→23:30)
[2019-06-19] MEDS: ALBUTEROL SULFATE 2.5 MG/ 0.5 ML NEBU NEB SCH ×6 (04:34→23:30)
--- NOTE | 2019-06-19 04:57 | NUR ---
patient resting. v/s stable. no distress noted. all medication administered. c/o of anxiety once. ativan administered. anxiety resolved. c/o of nausea once. no vomiting. nursing interventions provided. nausea resolved. will continue plan of care and endorse once.
[2019-06-19 06:09] VITALS: BP_SYST 114; BP_SYST 130; BP_DIAS 48; BP_DIAS 72
[2019-06-19] MEDS: methylPREDNISolone SOD SUCC 125 MG/2 ML VIAL IV SCH ×3 (06:21→21:39)
[2019-06-19] MEDS: PANTOPRAZOLE SODIUM 40 MG TABLET.DR PO SCH (06:21)
[2019-06-19] MEDS: GUAIFENESIN LA 600 MG TABLET.SA PO SCH ×2 (08:51→21:39)
[2019-06-19] MEDS: LISINOPRIL 10 MG TABLET PO SCH (08:51)
[2019-06-19] MEDS: ASPIRIN EC 81 MG TABLET.DR PO SCH (08:51)
[2019-06-19 11:30] VITALS: BP 148/77
[2019-06-19 16:00] VITALS: BP 138/72
[2019-06-19] MEDS: MONTELUKAST SODIUM 10 MG TABLET PO SCH (17:57)
--- NOTE | 2019-06-19 18:39 | NUR ---
PATIENT IN BED AWAKE AND ALERT , NO S/S OF ACUTE DISTRESS NOTED, NO C/O PAIN NOTED AT THIS TIME, PATIEN HAD SHOWER TODAY. CONTINUE TO MONITOR, CALL LIGHT WITHIN REACH. SAFETY AND COMFORT PROVIDED.
[2019-06-19 19:49] VITALS: BP 127/62
--- NOTE | 2019-06-19 21:04 | NUR ---
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 appears rested and comfortable with no s/s of acute distress. v/s stable at this time. bed in lowest position, bed alarm on, side rails up x2. will continue plan of care.
[2019-06-19] MEDS: ATORVASTATIN 10 MG TABLET PO SCH (21:39)
[2019-06-19] MEDS: CALCIUM CARBONATE 500 MG TAB.CHEW PO PRN (21:57)
--- NOTE | 2019-06-20 01:20 | NUR ---
c/o of nausea. talat refused. provided nursing interventions. patient resting in bed. will continue to monitor.
[2019-06-20] MEDS: IPRATROPIUM BROMIDE 0.5 MG/2.5 ML NEBU NEB SCH ×6 (01:21→22:30)
[2019-06-20] MEDS: ALBUTEROL SULFATE 2.5 MG/ 0.5 ML NEBU NEB SCH ×6 (01:21→22:30)
--- NOTE | 2019-06-20 04:31 | NUR ---
patient resting comfortably. v/s stable. denies SOB. will continue to monitor and endorse to morning nurse.
[2019-06-20 05:00] VITALS: BP 140/73
--- NOTE | 2019-06-20 05:23 | NUR ---
wheelabrator operator unable to receive blood from patient in first try. patient refused and asked for another wheelabrator operator. will get lab draws from her later in the morning
[2019-06-20] MEDS: PANTOPRAZOLE SODIUM 40 MG TABLET.DR PO SCH (06:09)
[2019-06-20] MEDS: methylPREDNISolone SOD SUCC 125 MG/2 ML VIAL IV SCH ×3 (06:09→21:51)
--- NOTE | 2019-06-20 07:27 | NUR ---
PATIENT IN BED RESTING WITH NO C/O PAIN AT THIS TIME, NO SOB NOTED . IV INTACT AND PATENT . SAFETY AND COMFORT NOTED. WILL CONTINUE TO MONITOR.
[2019-06-20 07:52] LABS: BASOPHILS % (AUTO) 0.1 % (0.0-2.0); HEMATOCRIT 36.9 % (31.2-41.9); HEMOGLOBIN 12.3 g/dL (10.9-14.3); LYMPHOCYTES # (AUTO) 0.6 K/uL (20.0-40.0); LYMPHOCYTES % (AUTO) 5.6 % (20.5-51.5); MEAN CORPUSCULAR HEMOGLOBIN 28.1 uug (24.7-32.8); MEAN CORPUSCULAR HGB CONC 33 g/dL (32.3-35.6); MEAN CORPUSCULAR VOLUME 84.4 fL (75.5-95.3); MONOCYTES # (AUTO) 0.5 K/uL (2.0-10.0); MONOCYTES % (AUTO) 4.2 % (0.0-11.0); NEUTROPHILS # (AUTO) 9.7 K/uL (1.8-8.9); NEUTROPHILS % (AUTO) 90.1 % (38.5-71.5); PLATELET COUNT (AUTO) 224 K/uL (179-408); RED BLOOD CELL COUNT(AUTO) 4.37 MIL/uL (3.63-4.92); WHITE BLOOD COUNT (AUTO) 10.8 K/uL (3.8-11.8)
[2019-06-20 08:00] VITALS: BP 132/83
[2019-06-20 08:01] LABS: CREATININE 0.7 mg/dL (0.6-1.3); MAGNESIUM 2.4 mg/dL (1.8-2.4); PHOSPHOROUS 3.3 mg/dL (2.5-4.9); POTASSIUM 3.9 mmol/L (3.5-5.1)
[2019-06-20] MEDS: GUAIFENESIN LA 600 MG TABLET.SA PO SCH ×2 (09:09→20:33)
[2019-06-20] MEDS: CLOTRIMAZOLE 10 MG TROCHE MM SCH ×4 (09:10→20:46)
[2019-06-20] MEDS: ASPIRIN EC 81 MG TABLET.DR PO SCH (09:10)
[2019-06-20] MEDS: LISINOPRIL 10 MG TABLET PO SCH (09:11)
[2019-06-20 12:21] VITALS: BP 140/71
[2019-06-20] MEDS: LORAZEPAM 0.5 MG TABLET PO PRN (14:26)
[2019-06-20 16:00] VITALS: BP 132/77
[2019-06-20] MEDS: IV NS 1000 ML 1,000 ML IV PRN (16:16)
[2019-06-20] MEDS: MONTELUKAST SODIUM 10 MG TABLET PO SCH (17:01)
--- NOTE | 2019-06-20 18:21 | NUR ---
PATIENT IN BED WATCHING TV WITH PHONE IN HAND. C/O OF HAVING SOB, O2 AT ROOM AIR 97, PROVIDE OXYGEN AND CALLED RESPIRATORY FOR PRN BREATHING TREATMENT. IV INTACT AND PATENT WITH RUNNING NS AT 50 ML/HR. . SAFETY AND COMFORT NOTED. WILL CONTINUE TO MONITOR.
[2019-06-20] MEDS: ATORVASTATIN 10 MG TABLET PO SCH (20:33)
[2019-06-20 20:37] VITALS: BP 133/69
[2019-06-21] MEDS: IPRATROPIUM BROMIDE 0.5 MG/2.5 ML NEBU NEB SCH ×5 (02:38→20:02)
[2019-06-21] MEDS: ALBUTEROL SULFATE 2.5 MG/ 0.5 ML NEBU NEB SCH ×5 (02:38→20:02)
[2019-06-21 05:45] VITALS: BP 128/77
[2019-06-21] MEDS: methylPREDNISolone SOD SUCC 125 MG/2 ML VIAL IV SCH ×3 (06:00→21:11)
[2019-06-21] MEDS: PANTOPRAZOLE SODIUM 40 MG TABLET.DR PO SCH (06:16)
[2019-06-21] MEDS: CLOTRIMAZOLE 10 MG TROCHE MM SCH ×4 (09:31→21:38)
[2019-06-21] MEDS: ASPIRIN EC 81 MG TABLET.DR PO SCH (09:31)
[2019-06-21] MEDS: LISINOPRIL 10 MG TABLET PO SCH (09:31)
[2019-06-21] MEDS: GUAIFENESIN LA 600 MG TABLET.SA PO SCH ×2 (09:31→21:11)
[2019-06-21] MEDS: LORAZEPAM 0.5 MG TABLET PO PRN ×2 (15:10→23:47)
[2019-06-21 16:05] VITALS: BP 135/72
[2019-06-21] MEDS: MONTELUKAST SODIUM 10 MG TABLET PO SCH (18:01)
[2019-06-21] MEDS: IV NS 1000 ML 1,000 ML IV PRN (19:30)
[2019-06-21] MEDS: BUDESONIDE 0.5 MG/2 ML NEBU NEB SCH (20:02)
[2019-06-21 20:03] VITALS: BP 117/66
[2019-06-21] MEDS: ATORVASTATIN 10 MG TABLET PO SCH (21:11)
[2019-06-22] MEDS: ALBUTEROL SULFATE 2.5 MG/ 0.5 ML NEBU NEB SCH ×7 (00:06→23:33)
[2019-06-22] MEDS: IPRATROPIUM BROMIDE 0.5 MG/2.5 ML NEBU NEB SCH ×7 (00:07→23:33)
[2019-06-22 05:17] VITALS: BP 129/71
--- NOTE | 2019-06-22 05:31 | NUR ---
PATIENT V/S STABLE THROUGHOUT NIGHT. NO S/S OF ACUTE DISTRESS. BED IN LOWEST POSITION, SIDE RAILS UPX2, BED ALARM ON. ALL MEDICATIONS ADMINISTERED. WILL CONTINUE TO MONITOR AND ENDORSE ACCORDINGLY.
[2019-06-22] MEDS: PANTOPRAZOLE SODIUM 40 MG TABLET.DR PO SCH (06:05)
[2019-06-22] MEDS: methylPREDNISolone SOD SUCC 125 MG/2 ML VIAL IV SCH ×3 (06:05→21:46)
[2019-06-22] MEDS: IV NS 1000 ML 1,000 ML IV PRN (06:11)
[2019-06-22 06:15] VITALS: BP 129/71
[2019-06-22] MEDS: ACETAMINOPHEN 325 MG TABLET PO PRN ×2 (06:40→17:20)
[2019-06-22] MEDS: BUDESONIDE 0.5 MG/2 ML NEBU NEB SCH ×2 (07:30→18:33)
--- NOTE | 2019-06-22 08:00 | NUR ---
received pt. resting in bed alert oriented x4. Pt. denies pain/ discomfort. pt. denies sob/ difficulty breathing. safety measures in place. call light within reach. will continue to monitor pt.
[2019-06-22] MEDS: LISINOPRIL 10 MG TABLET PO SCH (09:43)
[2019-06-22] MEDS: GUAIFENESIN LA 600 MG TABLET.SA PO SCH ×2 (09:43→20:07)
[2019-06-22] MEDS: ASPIRIN EC 81 MG TABLET.DR PO SCH (09:43)
[2019-06-22] MEDS: CLOTRIMAZOLE 10 MG TROCHE MM SCH ×4 (09:44→20:07)
[2019-06-22] MEDS: LORATADINE 10 MG TABLET PO SCH (11:01)
[2019-06-22 11:30] VITALS: BP 143/73
[2019-06-22 16:16] VITALS: BP 140/72
[2019-06-22] MEDS: LORAZEPAM 0.5 MG TABLET PO PRN (17:33)
[2019-06-22] MEDS: MONTELUKAST SODIUM 10 MG TABLET PO SCH (19:00)
--- NOTE | 2019-06-22 19:30 | NUR ---
Received patient lying in bed. AAOX4. Still somewhat upset about what happened this afternoon. Able to console patient. Denies any pain. Still stating some SOB but tolerable at this time. In no respiratory distress. IV site on right hand intact and patent. IVF infusing. Needs assessed and attended to. Safety measure initiated and call gunn within reached.
[2019-06-22] MEDS: ATORVASTATIN 10 MG TABLET PO SCH (20:07)
[2019-06-22] MEDS: IPRATROPIUM BROMIDE 0.5 MG/2.5 ML NEBU NEB PRN (20:38)
[2019-06-22] MEDS: ALBUTEROL SULFATE 2.5 MG/ 0.5 ML NEBU NEB PRN (20:38)
[2019-06-22 21:28] VITALS: BP 154/61
[2019-06-23] MEDS: LORAZEPAM 0.5 MG TABLET PO PRN ×3 (00:30→21:21)
[2019-06-23] MEDS: IV NS 1000 ML 1,000 ML IV PRN (01:44)
[2019-06-23] MEDS: ALBUTEROL SULFATE 2.5 MG/ 0.5 ML NEBU NEB SCH ×5 (03:01→19:59)
[2019-06-23] MEDS: IPRATROPIUM BROMIDE 0.5 MG/2.5 ML NEBU NEB SCH ×5 (03:01→19:59)
[2019-06-23 04:40] VITALS: BP 127/61
--- NOTE | 2019-06-23 05:51 | NUR ---
AAOX4. Denies any pain or SOB. Uses O2 at 2LPM via NC PRN. IV site on right hand intact and patent. IVF infusing. Needs attended to and met. Safety measure maintained and call gunn within reached
[2019-06-23] MEDS: methylPREDNISolone SOD SUCC 125 MG/2 ML VIAL IV SCH ×3 (06:04→21:24)
[2019-06-23] MEDS: PANTOPRAZOLE SODIUM 40 MG TABLET.DR PO SCH (06:05)
[2019-06-23] MEDS: BUDESONIDE 0.5 MG/2 ML NEBU NEB SCH ×2 (07:51→19:59)
--- NOTE | 2019-06-23 07:56 | NUR ---
PATIENT IN BED RESTING WITH NO C/O PAIN AT THIS TIME, NO SOB NOTED OR ACUTE DISTRESS . PT A+O X3. IV INTACT AND PATENT. BED LOCKED AND IN LOW POSITION. WILL CONTINUE TO MONITOR FOR SAFETY AND COMFORT.
[2019-06-23] MEDS: CLOTRIMAZOLE 10 MG TROCHE MM SCH ×4 (09:17→21:15)
[2019-06-23] MEDS: ASPIRIN EC 81 MG TABLET.DR PO SCH (09:17)
[2019-06-23] MEDS: GUAIFENESIN LA 600 MG TABLET.SA PO SCH ×2 (09:17→21:15)
[2019-06-23] MEDS: LORATADINE 10 MG TABLET PO SCH (09:18)
[2019-06-23] MEDS: LISINOPRIL 10 MG TABLET PO SCH (09:18)
[2019-06-23 11:49] VITALS: BP 163/80
[2019-06-23 15:53] VITALS: BP 133/85
[2019-06-23] MEDS: MONTELUKAST SODIUM 10 MG TABLET PO SCH (17:17)
--- NOTE | 2019-06-23 18:00 | NUR ---
PATIENT IN BED AWAKE AND ALERT , NO S/S OF ACUTE DISTRESS NOTED, NO C/O PAIN NOTED AT THIS TIME, PT HAD A NOSE BLEED, DR NARVAEZ AWARE, PATIENT HAD SHOWER TODAY. CONTINUE TO MONITOR, CALL LIGHT WITHIN REACH. SAFETY AND COMFORT PROVIDED. WILL GIVE REPORT ACCORDINGLY.
--- NOTE | 2019-06-23 19:20 | NUR ---
Received patient sitting upright in bed. AAOX4. Denies any pain or SOB on RA. O2 sat at 96% RA. In no respiratory distress. IV site on right hand intact and patent. IVF infusing. Needs assessed and attended to. Safety measure initiated and call gunn within reached.
[2019-06-23 19:34] VITALS: BP 140/79
[2019-06-23] MEDS: ATORVASTATIN 10 MG TABLET PO SCH (21:15)
[2019-06-24] MEDS: IPRATROPIUM BROMIDE 0.5 MG/2.5 ML NEBU NEB SCH ×7 (00:08→23:39)
[2019-06-24] MEDS: ALBUTEROL SULFATE 2.5 MG/ 0.5 ML NEBU NEB SCH ×7 (00:08→23:39)
[2019-06-24] MEDS: IV NS 1000 ML 1,000 ML IV PRN ×2 (00:48→19:45)
[2019-06-24] MEDS: LORAZEPAM 0.5 MG TABLET PO PRN ×2 (04:03→20:07)
--- NOTE | 2019-06-24 04:08 | NUR ---
Patient complaining of still having SOB in spite of just getting breathing treatment from the RT about 30 mins. ago. Stated that she woke up feeling like choking right before she got her breathing treatment. Also stated that she has pain on her right shoulder, back, mid lower chest area and left rib cage area. Patient place on O2 at 2LPM via NC and sating 98%. Offered her pain medication but she refused and stated that won't help. Offered Ativan 0.25mg, which at first she refused, but did agree to take it after. Also offered incentive spirometer, informed her of benefit of using it, which she also refused. Insisting to have ER MD to come and see her. Informed DEPUTY PROSECUTING ATTORNEY Ulises, awaiting for reply.
--- NOTE | 2019-06-24 04:31 | NUR ---
SELENE Montgomery with order to do stat CXR. Order carried out. Notified radiology/Gaurav of order.
--- NOTE | 2019-06-24 04:44 | NUR ---
CXR at bedside.
[2019-06-24] MEDS: methylPREDNISolone SOD SUCC 125 MG/2 ML VIAL IV SCH ×3 (05:03→22:59)
[2019-06-24] MEDS: IPRATROPIUM BROMIDE 0.5 MG/2.5 ML NEBU NEB PRN (05:16)
[2019-06-24] MEDS: ALBUTEROL SULFATE 2.5 MG/ 0.5 ML NEBU NEB PRN (05:17)
--- NOTE | 2019-06-24 05:32 | NUR ---
Patient appears comfortable at this time. Asleep. In no acute distress. Just received CXR result. Informed PAPER CARRIER Ulises of result, with no new order given.
[2019-06-24] MEDS: PANTOPRAZOLE SODIUM 40 MG TABLET.DR PO SCH (06:06)
--- NOTE | 2019-06-24 06:09 | NUR ---
Appears comfortable at this time. In no acute distress. VS WNL. IV site on right hand intact and patent. IVF continue to infuse. Lorazepam 0.25mg PO PRN given for anxiety and effective. Needs attended to and met. Safety measure maintained and call gunn within reached.
[2019-06-24] MEDS: BUDESONIDE 0.5 MG/2 ML NEBU NEB SCH ×2 (07:53→20:09)
--- NOTE | 2019-06-24 08:00 | NUR ---
Received pt. resting in bed alert oriented x4. Pt. denies SOB/ difficulty breathing. IV in R hand 20 gauge intact patent running prescribed fluids. Safety measures in place. call light within reach. will continue to monitor pt.
[2019-06-24] MEDS: GUAIFENESIN LA 600 MG TABLET.SA PO SCH ×2 (08:32→20:08)
[2019-06-24] MEDS: ASPIRIN EC 81 MG TABLET.DR PO SCH (08:32)
[2019-06-24] MEDS: LORATADINE 10 MG TABLET PO SCH (08:32)
[2019-06-24] MEDS: LISINOPRIL 10 MG TABLET PO SCH (08:34)
[2019-06-24] MEDS: CLOTRIMAZOLE 10 MG TROCHE MM SCH ×4 (09:05→20:08)
[2019-06-24 10:11] LABS: BASOPHILS % (AUTO) 0.2 % (0.0-2.0); EOSINOPHILS % (AUTO) 0.1 % (0.0-7.0); HEMATOCRIT 39.9 % (31.2-41.9); HEMOGLOBIN 13.1 g/dL (10.9-14.3); LYMPHOCYTES # (AUTO) 0.2 K/uL (20.0-40.0); LYMPHOCYTES % (AUTO) 1.2 % (20.5-51.5); MEAN CORPUSCULAR HGB CONC 33 g/dL (32.3-35.6); MEAN CORPUSCULAR VOLUME 85.2 fL (75.5-95.3); MONOCYTES # (AUTO) 0.5 K/uL (2.0-10.0); MONOCYTES % (AUTO) 2.6 % (0.0-11.0); NEUTROPHILS % (AUTO) 95.9 % (38.5-71.5); PLATELET COUNT (AUTO) 197 K/uL (179-408); RED BLOOD CELL COUNT(AUTO) 4.68 MIL/uL (3.63-4.92); WHITE BLOOD COUNT (AUTO) 17.7 K/uL (3.8-11.8)
[2019-06-24 10:18] LABS: CREATININE 0.8 mg/dL (0.6-1.3); POTASSIUM 3.5 mmol/L (3.5-5.1)
[2019-06-24] MEDS: FLUTICASONE PROP NASAL SPRAY 16 GM BOTTLE NS SCH (11:52)
[2019-06-24 12:14] VITALS: BP 130/77
[2019-06-24] MEDS: LIDOCAINE 5% PATCH TD SCH (12:39)
[2019-06-24 16:00] VITALS: BP 123/71
[2019-06-24] MEDS: MONTELUKAST SODIUM 10 MG TABLET PO SCH (17:26)
--- NOTE | 2019-06-24 17:43 | NUR ---
called dr. edwards to remind him of consult for pt. dr. edwards stated to call [facility]. called [facility] to notify them.
[2019-06-24 20:00] VITALS: BP 123/71
[2019-06-24] MEDS: ATORVASTATIN 10 MG TABLET PO SCH (20:07)
[2019-06-24] MEDS: ACETAMINOPHEN 325 MG TABLET PO PRN (20:08)
[2019-06-25] MEDS: ALBUTEROL SULFATE 2.5 MG/ 0.5 ML NEBU NEB SCH ×6 (03:28→23:30)
[2019-06-25] MEDS: IPRATROPIUM BROMIDE 0.5 MG/2.5 ML NEBU NEB SCH ×6 (03:28→23:30)
[2019-06-25 04:00] VITALS: BP 134/84
--- NOTE | 2019-06-25 06:30 | NUR ---
Patient slept intermittently. No SOB noted. IV on R hand 20g intact and patent. All needs attended. Will endorse accordingly
[2019-06-25] MEDS: methylPREDNISolone SOD SUCC 125 MG/2 ML VIAL IV SCH (06:53)
[2019-06-25] MEDS: PANTOPRAZOLE SODIUM 40 MG TABLET.DR PO SCH (06:53)
[2019-06-25] MEDS: BUDESONIDE 0.5 MG/2 ML NEBU NEB SCH ×2 (07:21→19:13)
--- NOTE | 2019-06-25 08:00 | NUR ---
Patient resting comfortably in bed at this time. Patient was actually pleasant, cooperative, and respectful this morning. Stable condition, no signs of distress. Denies any pain or SOB. No signs of respiratory distress. Possible D/C. Will continue to monitor throughout shift. Safety measures implemented.
[2019-06-25] MEDS: CLOTRIMAZOLE 10 MG TROCHE MM SCH ×4 (08:26→20:53)
[2019-06-25] MEDS: LORATADINE 10 MG TABLET PO SCH (08:28)
[2019-06-25] MEDS: ASPIRIN EC 81 MG TABLET.DR PO SCH (08:28)
[2019-06-25] MEDS: FLUTICASONE PROP NASAL SPRAY 16 GM BOTTLE NS SCH (08:28)
[2019-06-25] MEDS: GUAIFENESIN LA 600 MG TABLET.SA PO SCH ×2 (08:28→20:52)
[2019-06-25] MEDS: LISINOPRIL 10 MG TABLET PO SCH (08:31)
[2019-06-25] MEDS: LIDOCAINE 5% PATCH TD SCH (08:32)
--- NOTE | 2019-06-25 11:00 | NUR ---
Patient's behavior suddenly changed. Patient being extremely disrespectful about vital signs being taken. Patient refused to have vital signs taken. Verbalized to me that "I did not like you the second you stepped into this room".
[2019-06-25 11:04] VITALS: BP 139/76
[2019-06-25] MEDS ORDERED: ALBU18HF2 INH (12:32)
[2019-06-25] MEDS ORDERED: BUDE0.5A NEB (12:32)
[2019-06-25] MEDS ORDERED: MONT10TA22 PO (12:32)
[2019-06-25] MEDS ORDERED: PRED20TA PO (12:32)
--- NOTE | 2019-06-25 14:00 | NUR ---
Patient has been discharged by , cleared hospitalist to be discharged home. MD verbalized to patient that she will be discharged today because she has been cleared by traffic signal technician. Discharged order placed by MD. and Discharge documentation printed for patient. MD also has a written prescription for patient.
--- NOTE | 2019-06-25 14:30 | NUR ---
Notified patient that she has been discharged by MD and patient become extremely angry, verbalizing that "I am not being discharged today, I have spoken to Luis A Enriquez NP, that i will not be discharged today because I spoke with Dr. Kaur and Dr. Kaur said I can stay another day so I can get a smaller dosage of Solumedrol IV". There seems to have been a miscommunication with discharging the patient between hospitalist and branch sales and service representative. Hospitalist discharged patient with an order placed but branch sales and service representative verbalizes to patient that she can stay another day with adjustment to Solumedrol IV.
--- NOTE | 2019-06-25 15:00 | NUR ---
Patient very upset that discharge orders were written. States no physician advised her of plans. Dr. Kaur is still tapering her solumedrol and left saying "see you tomorrow." Instructed d/c orders were written by hospitalist. Roseanna became very upset. Luis A Enriquez notified of situation. D/C cancelled. patient notified. Nickie, nut processing supervisor also spoke with Roseanna.
--- NOTE | 2019-06-25 15:10 | NUR ---
Patient's arrives onto med-surg unit and is extremely angry at the situation. Patient's verbalizes/threatens charge nurse Joseph, "Give me the name of the nurse taking care of my today or else I will call the police!" Security called onto medical surgical floor. Situation de-escalated with Charge NurseJoseph explaining to patient that she will not take over the care for patient during the shift and current nurse (myself) will no longer be caring for patient.
--- NOTE | 2019-06-25 15:30 | NUR ---
SENT TO ROOM BY REQUEST FROM TO SEE CHARGE NURSE. - DOMINICK DEMANDING TO HAVE THE FULL NAME AND TELEPHONE NUMBER OF NURSE DISCHARGING PATIENT. INSTRUCTED NURSE WAS FOLLING ORDERS TO DISCHARGE, AND NAME AND TELEPHONE NUMBER NOT AVAILABLE TO HIM. DOMINICK THREATENED TO CALL [employer]. INSTRUCTED THAT WOULD BE HIS CHOICE, bUT I AM STILL NOT AT [employer] TO GIVE OUT PRIVILAGED INFORMATION. THAT WOULD BE VIOLATING HIPPA. STATES I AM CALLING THE POLICE. CHARGE NURSE CALLED AIRCRAFT ENGINE TECHNICIAN & SECURITY.
[2019-06-25] MEDS: IV NS 1000 ML 1,000 ML IV PRN (15:47)
[2019-06-25] MEDS: LORAZEPAM 0.5 MG TABLET PO PRN (15:47)
--- NOTE | 2019-06-25 16:00 | NUR ---
Change of care initiated at this time. Charge nurse, Joseph will not be taking care of patient.
--- NOTE | 2019-06-25 16:00 | NUR ---
ASSIGNMENT CHANGED & NAA ASSUMED CARE OF PATIENT. MED WITH ATIVAN PER REQUEST WITH GOOD EFFECT AFTER 45 MINS. CALMER AT THIS TIME. LEAVING.
[2019-06-25] MEDS: MONTELUKAST SODIUM 10 MG TABLET PO SCH (17:41)
[2019-06-25] MEDS: methylPREDNISolone SOD SUCC 40 MG/ML VIAL IV SCH (17:41)
[2019-06-25 20:06] VITALS: BP 135/65
[2019-06-25] MEDS: ATORVASTATIN 10 MG TABLET PO SCH (20:52)
[2019-06-25] MEDS ORDERED: methylPREDNISolone SOD SUCC 40 MG/ML VIAL IV SCH (21:00)
[2019-06-25] MEDS: ACETAMINOPHEN 325 MG TABLET PO PRN (21:05)
[2019-06-26] MEDS: ALBUTEROL SULFATE 2.5 MG/ 0.5 ML NEBU NEB SCH ×6 (03:34→22:47)
[2019-06-26] MEDS: IPRATROPIUM BROMIDE 0.5 MG/2.5 ML NEBU NEB SCH ×6 (03:34→22:47)
[2019-06-26 04:10] VITALS: BP 104/70
[2019-06-26] MEDS: methylPREDNISolone SOD SUCC 40 MG/ML VIAL IV SCH (06:14)
[2019-06-26] MEDS: PANTOPRAZOLE SODIUM 40 MG TABLET.DR PO SCH (06:43)
--- NOTE | 2019-06-26 06:48 | NUR ---
Patient slept well. Patient was requesting for Lidocaine patch at the start of shift but informed her that Lidocaine patch was ordered in the morning but she refused it. Informed patient that I will get order for Lidocaine patch for tonight but patient stated "Nevermind just cancel it, I don't want to deal w/ Luis A Enriquez LICENSE DISTRIBUTOR". Patient also had x1 episode of nosebleed, moderated amount, Mina LICENSE DISTRIBUTOR made aware. Patient remained calm and compliant throughout the rest of the shift. All needs attended. Will endorse accordingly
[2019-06-26] MEDS: BUDESONIDE 0.5 MG/2 ML NEBU NEB SCH ×2 (07:53→19:07)
[2019-06-26] MEDS: LISINOPRIL 10 MG TABLET PO SCH (08:36)
[2019-06-26] MEDS: FLUTICASONE PROP NASAL SPRAY 16 GM BOTTLE NS SCH (08:38)
[2019-06-26] MEDS: CLOTRIMAZOLE 10 MG TROCHE MM SCH ×4 (08:38→20:15)
[2019-06-26] MEDS: GUAIFENESIN LA 600 MG TABLET.SA PO SCH ×2 (08:38→20:15)
[2019-06-26] MEDS: LORATADINE 10 MG TABLET PO SCH (08:38)
[2019-06-26] MEDS: ASPIRIN EC 81 MG TABLET.DR PO SCH (08:42)
[2019-06-26] MEDS: LIDOCAINE 5% PATCH TD SCH (08:43)
[2019-06-26] MEDS: ACETAMINOPHEN 325 MG TABLET PO PRN (10:34)
[2019-06-26 11:09] VITALS: BP 133/64
[2019-06-26] MEDS: IV NS 1000 ML 1,000 ML IV PRN (12:52)
[2019-06-26] MEDS: IPRATROPIUM BROMIDE 0.5 MG/2.5 ML NEBU NEB PRN (12:55)
[2019-06-26] MEDS: ALBUTEROL SULFATE 2.5 MG/ 0.5 ML NEBU NEB PRN (12:55)
[2019-06-26] MEDS: predniSONE 20 MG TABLET PO SCH (13:56)
[2019-06-26 15:12] VITALS: BP 139/71
[2019-06-26] MEDS: MONTELUKAST SODIUM 10 MG TABLET PO SCH (17:10)
--- NOTE | 2019-06-26 19:15 | NUR ---
Received report from AM nurse. No behavioral episodes noted during shift. Asthma management under control. Received patient sitting up in bed, with breathing treatments almost finished. Allowed to finish. Noted with no distress or discomfort on RA. Asking for lidocaine patch, but explained to her that it is given once daily, and taken off at bedtime. Pt verbalized understanding for now. Bedside care rendered. Fall and safety precautions reinforced. Will continue to monitor.
[2019-06-26 20:02] VITALS: BP 127/72
[2019-06-26] MEDS: ATORVASTATIN 10 MG TABLET PO SCH (20:15)
[2019-06-27] MEDS: LORAZEPAM 0.5 MG TABLET PO PRN ×2 (02:51→20:36)
[2019-06-27] MEDS: IPRATROPIUM BROMIDE 0.5 MG/2.5 ML NEBU NEB SCH ×5 (03:01→19:10)
[2019-06-27] MEDS: ALBUTEROL SULFATE 2.5 MG/ 0.5 ML NEBU NEB SCH ×5 (03:01→19:10)
[2019-06-27 04:30] VITALS: BP 134/72
[2019-06-27] MEDS: PANTOPRAZOLE SODIUM 40 MG TABLET.DR PO SCH (06:08)
[2019-06-27] MEDS: BUDESONIDE 0.5 MG/2 ML NEBU NEB SCH ×2 (07:55→19:10)
[2019-06-27] MEDS: predniSONE 20 MG TABLET PO SCH (08:28)
[2019-06-27] MEDS: ASPIRIN EC 81 MG TABLET.DR PO SCH (08:28)
[2019-06-27] MEDS: GUAIFENESIN LA 600 MG TABLET.SA PO SCH ×2 (08:28→20:35)
[2019-06-27] MEDS: LORATADINE 10 MG TABLET PO SCH (08:29)
[2019-06-27] MEDS: FLUTICASONE PROP NASAL SPRAY 16 GM BOTTLE NS SCH (08:29)
[2019-06-27] MEDS: LIDOCAINE 5% PATCH TD SCH (08:30)
--- NOTE | 2019-06-27 08:30 | NUR ---
Received patient awake, alert, oriented x 4 not in any form of distress, on room air. Patient denies any pain or discomfort at this time. Due medications administered and tolerated well. Assisted with her needs promptly and met. Call light and frequently used items placed within reach.
[2019-06-27] MEDS: LISINOPRIL 10 MG TABLET PO SCH (08:34)
[2019-06-27] MEDS: IV NS 1000 ML 1,000 ML IV PRN (09:35)
[2019-06-27] MEDS ORDERED: LORA-258 PO (10:08)
--- NOTE | 2019-06-27 10:43 | NUR ---
Patient noted with episode of nose bleeding which eventually stopped. Luis A Enriquez NP made aware with no new order.
[2019-06-27] MEDS: ALBUTEROL SULFATE 2.5 MG/ 0.5 ML NEBU NEB PRN (11:37)
[2019-06-27] MEDS: IPRATROPIUM BROMIDE 0.5 MG/2.5 ML NEBU NEB PRN (11:37)
[2019-06-27 12:03] VITALS: BP 140/76
--- NOTE | 2019-06-27 13:30 | NUR ---
Patient seen and examined by Dr. Kaur and said patient is OK for discharge.
[2019-06-27 16:00] VITALS: BP 130/62
[2019-06-27] MEDS: MONTELUKAST SODIUM 10 MG TABLET PO SCH (17:21)
[2019-06-27 20:05] VITALS: BP 133/74
[2019-06-27] MEDS: ATORVASTATIN 10 MG TABLET PO SCH (20:35)
--- NOTE | 2019-06-27 21:05 | NUR ---
Discharge teaching regarding disease process and medications prescribed to continue at home done. All belongings accounted for. Patient verbalized understanding and agreement with discharge. IV discontinued. All belongings ready. Due HS medications given. Waiting for patient's family to pick her up.
--- NOTE | 2019-06-27 21:25 | NUR ---
Pt assisted by MELTING SUPERVISOR via wheelchair to transportation. Left unit in stable condition.
== END 2019-06-27 21:58 | disposition home or self-care (01) | DRG 202 ==
LOC: ER 16:33 → TELE3 06-11 00:27 → MEDSURG3 06-11 11:35
PROVIDERS: ADMIT Student in an Organized Health Care Education/Training Program
DX: J45.901 Unspecified asthma with (acute) exacerbation (principal); J18.9 Pneumonia, unspecified organism; J98.11 Atelectasis; J20.9 Acute bronchitis, unspecified; Z87.01 Personal history of pneumonia (recurrent); I10 Essential (primary) hypertension; M19.90 Unspecified osteoarthritis, unspecified site; E78.5 Hyperlipidemia, unspecified; M94.0 Chondrocostal junction syndrome [Tietze]; T38.0X5A Adverse effect of glucocorticoids and synthetic analogues, initial encounter; Y92.238 Other place in hospital as the place of occurrence of the external cause; K59.00 Constipation, unspecified; J45.902 Unspecified asthma with status asthmaticus
CPT/HCPCS: 36415; 70030-TC; 70486; 71045; 83735; 84100; 84146; 84443; 85025; 85730; 87070; 87086; 93005; 94640; A4663; G0378; J1956; J2405; J2920; J2930; J3475; J3490; J3535; J3590; J7030; J7040; J7512; J7614